=== PATIENT | male | born 1990 | race Caucasian/White ===

== ENCOUNTER 2020-09-28 16:53 | Emergency (ER) | payer OTHER ==
[~2020-09-28] VITALS: Ht 175.3 cm; Wt 86.4 kg
[2020-09-28] MEDS ORDERED: acetaminophen 325mg tablet PO ONE (17:05)
--- NOTE | 2020-09-28 17:16 | NUR ---
TO CT SCAN
[2020-09-28] MEDS ORDERED: ONDA4TAB6 PO (18:05)
[2020-09-28] MEDS ORDERED: HYDR-3964 PO (18:05)
[2020-09-28 18:39] VITALS: BP 146/91
== END 2020-09-28 18:41 ==
LOC: ER 16:53
DX: S02.40FA Zygomatic fracture, left side, initial encounter for closed fracture (principal); S00.83XA Contusion of other part of head, initial encounter; S06.0X0A Concussion without loss of consciousness, initial encounter; S02.40DA Maxillary fracture, left side, initial encounter for closed fracture; R51.9 Headache, unspecified; N18.9 Chronic kidney disease, unspecified; Z79.899 Other long term (current) drug therapy; Y08.89XA Assault by other specified means, initial encounter; Y93.89 Activity, other specified; Y92.89 Other specified places as the place of occurrence of the external cause; Y99.8 Other external cause status
CPT/HCPCS: 70450; 70486; 99285

== ENCOUNTER 2020-12-08 23:43 | Inpatient (IN) | payer OTHER ==
[~2020-12-08] VITALS: Ht 185.4 cm; Wt 75.0 kg
[~2020-12-08 23:43] MED LIST: ONDA4TAB6 PO
[2020-12-08] MEDS ORDERED: normal saline 1000ML IV soln IVB ONE (23:55)
[2020-12-09 00:42] LABS: ALANINE AMINOTRANSFERASE 145 U/L (12-78); ALBUMIN 3.5 G/DL (3.4-5.0); ALKALINE PHOSPHATASE 95 IU/L (46-116); ANION GAP 7 (8-16); ASPARTATE AMINO TRANSFERASE 130 U/L (10-37); BILIRUBIN,TOTAL 1.5 MG/DL (0.1-1.0); BLOOD UREA NITROGEN 16 MG/DL (7-18); BUN/CREATININE RATIO 14.3 (5.4-32.0); CALCIUM 8.1 MG/DL (8.5-10.1); CHLORIDE 106 MMOL/L (99-107); CREATININE 1.12 MG/DL (0.60-1.10); GLUCOSE 250 MG/DL (70-104); POTASSIUM 4.7 MMOL/L (3.5-5.1); SODIUM 141 MMOL/L (135-145); TOTAL CARBON DIOXIDE 27.8 MMOL/L (24-32); TOTAL PROTEIN 6.9 G/DL (6.4-8.2); eGFR 76 ML/MIN
[2020-12-09 00:45] LABS: ETHANOL < 0.010 GM/DL (0.0-0.010); TROPONIN I 0.33 NG/ML (0.0-0.05)
[2020-12-09] MEDS ORDERED: normal saline 1000ML IV soln IVB ONE (01:00)
[2020-12-09] MEDS ORDERED: aspirin 81mg tab.chew PO ONE (01:00)
[2020-12-09 01:01] LABS: BASOPHILS % (AUTO) 0.1 % (0-1); EOSINOPHILS % (AUTO) 0.3 % (0-6); HEMOGLOBIN 14.1 g/dl (14.0-17.9); LYMPHOCYTES # (AUTO) 1.1 X10'3 (1.1-4.8); LYMPHOCYTES % (AUTO) 7.7 % (21-51); MEAN CORPUSCULAR HEMOGLOBIN 31.1 PG (27.0-31.0); MEAN CORPUSCULAR HGB CONC 34.4 g/dL (33.0-36.5); MEAN CORPUSCULAR VOLUME 90.4 FL (78-98); MONOCYTES # (AUTO) 0.7 X10'3 (0-0.9); MONOCYTES % (AUTO) 5.2 % (2-12); NEUTROPHILS # (AUTO) 11.9 X10'3 (1.8-7.7); NEUTROPHILS % (AUTO) 86.7 % (42-75); PLATELET COUNT 317 X10'3 (140-440); RED BLOOD COUNT 4.53 X10'6 (4.70-6.10); RED CELL DISTRIBUTION WIDTH 13.1 % (11.5-14.5); WHITE BLOOD COUNT 13.7 X10'3 (4.5-11.0)
[2020-12-09] MEDS ORDERED: diphenhydrAMINE 50 mg/ml inj IV PRN (01:35)
[2020-12-09] MEDS ORDERED: acetaminophen 650mg rectal suppository RC PRN (01:35)
[2020-12-09] MEDS ORDERED: mag hydrox/Alum hydrox/simeth 30ml oral suspension PO PRN (01:35)
[2020-12-09] MEDS ORDERED: magnesium hydroxide 30ml (MOM) UD suspension PO PRN (01:35)
[2020-12-09] MEDS ORDERED: acetaminophen 325mg tablet PO PRN ×2 (01:35)
[2020-12-09] MEDS ORDERED: ondansetron/PF 4mg/2ml inj IV PRN (01:35)
[2020-12-09] MEDS ORDERED: morphine 2 MG/ML inj. syringe IV PRN (01:35)
[2020-12-09] MEDS ORDERED: bisacodyl 10mg suppository rectal RC PRN (01:35)
[2020-12-09] MEDS ORDERED: diphenhydrAMINE 25mg capsule PO PRN (01:35)
[2020-12-09 01:55] LABS: HEMOGLOBIN A1C 5.2 % (4.5-6.2)
[2020-12-09 02:03] LABS: CREATINE KINASE 157 U/L (39-308); LIPASE < 50 U/L (73-393); PHOSPHORUS 4.3 MG/DL (2.3-4.5)
[2020-12-09] MEDS: normal saline 1000ml 1,000 ML IV SCH ×3 (02:05→19:57)
[2020-12-09] MEDS ORDERED: heparin, porcine 5000 units/ml vial SQ ONE (02:10)
[2020-12-09] MEDS: morphine 2 MG/ML inj. syringe IV PRN (02:16)
[2020-12-09 02:38] LABS: PARTIAL THROMBOPLASTIN TIME 27 SECONDS (22-32)
[2020-12-09] MEDS ORDERED: heparin 10,000 units/1 ML INJ IV PRN (02:45)
[2020-12-09] MEDS ORDERED: heparin 25,000 UNIT/250ml bag 250 ML IV SCH (02:45)
[2020-12-09] MEDS ORDERED: heparin 10,000 units/1 ML INJ IV ONE (02:45)
[2020-12-09 03:14] LABS: BASOPHILS % (AUTO) 0.1 % (0-1); EOSINOPHILS % (AUTO) 0 % (0-6); HEMATOCRIT 33.4 % (42.0-52.0); HEMOGLOBIN 11.1 g/dl (14.0-17.9); LYMPHOCYTES # (AUTO) 0.5 X10'3 (1.1-4.8); LYMPHOCYTES % (AUTO) 4.2 % (21-51); MEAN CORPUSCULAR HEMOGLOBIN 30.9 PG (27.0-31.0); MEAN CORPUSCULAR HGB CONC 33.2 g/dL (33.0-36.5); MEAN PLATELET VOLUME 5.6 FL (7.4-10.4); MONOCYTES # (AUTO) 0.9 X10'3 (0-0.9); MONOCYTES % (AUTO) 7.5 % (2-12); NEUTROPHILS % (AUTO) 88.2 % (42-75); PLATELET COUNT 226 X10'3 (140-440); RED BLOOD COUNT 3.59 X10'6 (4.70-6.10); RED CELL DISTRIBUTION WIDTH 13.3 % (11.5-14.5); WHITE BLOOD COUNT 11.4 X10'3 (4.5-11.0)
[2020-12-09] MEDS ORDERED: iohexol 350MG/ML 100ml bottle IV ONE (04:42)
[2020-12-09] MEDS: HYDROcodone/acetaminophen 5mg/325mg tablet PO PRN ×3 (05:25→19:58)
[2020-12-09 05:27] VITALS: BP 108/56
--- NOTE | 2020-12-09 06:29 | NUR ---
Patient in room PCU 3027. I have received report from AMARA Washington and had the opportunity to ask questions and assume patient care.
[2020-12-09] MEDS ORDERED: atorvastatin 20mg tablet PO SCH (08:00)
[2020-12-09] MEDS: nicotine 21mg patch - 24 hr TD SCH (08:00)
[2020-12-09] MEDS: docusate sod 100mg capsule PO SCH ×2 (08:00→19:58)
[2020-12-09] MEDS ORDERED: metoprolol succinate 25mg (24-HOUR) SR. Tablet PO SCH (08:00)
[2020-12-09] MEDS ORDERED: nitroGLYCERIN 0.1mg/hour patch TD SCH (08:00)
[2020-12-09] MEDS ORDERED: lisinopril 2.5mg tablet PO SCH (08:00)
[2020-12-09] MEDS: aspirin 81mg tablet.DR PO SCH (08:17)
[2020-12-09] MEDS: CefTRIAXone/D5W-Rocephin 1gm 50 ML IV SCH (08:17)
[2020-12-09] MEDS: pantoprazole 40mg Tablet.DR PO SCH (08:18)
[2020-12-09] MEDS ORDERED: NO HOME MEDS (09:35)
[2020-12-09] MEDS: azithromycin 250mg tablet PO SCH (10:39)
[2020-12-09 11:00] VITALS: BP 94/53
[2020-12-09 11:10] LABS: HIV ANTIBODY 1&2 RAPID NON-REACTIVE (Neg)
[2020-12-09] MEDS ORDERED: heparin, porcine 5000 units/ml vial SQ SCH (14:00)
[2020-12-09 15:00] VITALS: BP 103/57
[2020-12-09 17:47] LABS: CLARITY,URINE CLEAR (Clear); COLOR,URINE YELLOW (Yellow); GLUCOSE, URINE 250 mg/dl (Neg); KETONES,URINE NEGATIVE (Neg); LEUKOCYTE ESTERASE ,URINE NEGATIVE (Neg); NITRITES, URINE NEGATIVE (Neg); OCCULT BLOOD,URINE NEGATIVE (Neg); PH,URINE 5.5 (4.8-8.0); PROTEIN,URINE TRACE mg/dl (Neg)
[2020-12-09 17:51] LABS: UA COLLECTION TYPE NON-SPECIFIED
[2020-12-09 17:52] LABS: BACTERIA,URINE NONE SEEN /HPF (Neg); MUCUS STRANDS FEW /LPF (Neg); RBC,URINE NONE SEEN /HPF (0-2); SQUAMOUS EPITHELIAL CELL,UR NONE SEEN /LPF (FEW); WBC,URINE 0-4 /HPF (0-4)
[2020-12-09 18:00] VITALS: BP 110/53
[2020-12-09 18:00] LABS: URINE AMPHETAMINE SCREEN POSITIVE (Neg); URINE BARBITUATE SCREEN NEGATIVE (Neg); URINE BENZODIAZEPINES SCREEN NEGATIVE (Neg); URINE CANNABINOID SCREEN POSITIVE (Neg); URINE COCAINE SCREEN NEGATIVE (Neg); URINE METHADONE SCREEN NEGATIVE (Neg); URINE OPIATE SCREEN POSITIVE (Neg); URINE PHENCYCLIDINE SCREEN NEGATIVE (Neg)
--- NOTE | 2020-12-09 18:20 | NUR ---
Problems reprioritized. Patient report given, questions answered & plan of care reviewed with AMARA Vogt.
--- NOTE | 2020-12-09 19:47 | NUR ---
Patient in room PCU 3027. I have received report from Lizet MALONEY and had the opportunity to ask questions and assume patient care.
[2020-12-09] MEDS: lactobacillus rhamnosus 10,000 MMU CELLS/CAPSULE PO SCH (19:58)
[2020-12-09] MEDS: heparin, porcine 5000 units/ml vial SQ SCH (19:58)
[2020-12-09] MEDS ORDERED: temazepam 15mg capsule PO PRN (21:00)
[2020-12-09 22:00] VITALS: BP 96/48
[2020-12-10] MEDS: morphine 2 MG/ML inj. syringe IV PRN (01:54)
[2020-12-10] MEDS: normal saline 1000ml 1,000 ML IV SCH ×2 (01:55→10:13)
[2020-12-10 02:00] VITALS: BP 101/65
--- NOTE | 2020-12-10 06:20 | NUR ---
Patient in room PCU 3027. I have received report from Sin MALONEY and had the opportunity to ask questions and assume patient care.
--- NOTE | 2020-12-10 06:41 | NUR ---
Problems reprioritized. Patient report given, questions answered & plan of care reviewed with Clemencia.
[2020-12-10 06:42] LABS: BASOPHILS % (AUTO) 0.3 % (0-1); EOSINOPHILS # (AUTO) 0.1 X10'3 (0-0.9); EOSINOPHILS % (AUTO) 0.7 % (0-6); HEMATOCRIT 37.4 % (42.0-52.0); HEMOGLOBIN 12.9 g/dl (14.0-17.9); LYMPHOCYTES # (AUTO) 1.1 X10'3 (1.1-4.8); LYMPHOCYTES % (AUTO) 8.9 % (21-51); MEAN CORPUSCULAR HGB CONC 34.4 g/dL (33.0-36.5); MEAN CORPUSCULAR VOLUME 90.1 FL (78-98); MEAN PLATELET VOLUME 6.4 FL (7.4-10.4); MONOCYTES # (AUTO) 0.9 X10'3 (0-0.9); MONOCYTES % (AUTO) 7.4 % (2-12); NEUTROPHILS # (AUTO) 9.9 X10'3 (1.8-7.7); NEUTROPHILS % (AUTO) 82.7 % (42-75); PLATELET COUNT 268 X10'3 (140-440); RED BLOOD COUNT 4.15 X10'6 (4.70-6.10); RED CELL DISTRIBUTION WIDTH 13.1 % (11.5-14.5); WHITE BLOOD COUNT 11.9 X10'3 (4.5-11.0)
[2020-12-10 06:49] LABS: ALANINE AMINOTRANSFERASE 103 U/L (12-78); ALBUMIN 2.7 G/DL (3.4-5.0); ALBUMIN/GLOBULIN RATIO 0.9 (1.1-1.5); ALKALINE PHOSPHATASE 78 IU/L (46-116); ANION GAP 9 (8-16); ASPARTATE AMINO TRANSFERASE 43 U/L (10-37); BILIRUBIN,TOTAL 2.4 MG/DL (0.1-1.0); BLOOD UREA NITROGEN 8 MG/DL (7-18); BUN/CREATININE RATIO 10.5 (5.4-32.0); CALCIUM 8.1 MG/DL (8.5-10.1); CHLORIDE 108 MMOL/L (99-107); CHOL/HDL RATIO 4.2 (0.00-4.99); CHOLESTEROL 130 MG/DL (0-200); CREATININE 0.76 MG/DL (0.60-1.10); GLUCOSE 107 MG/DL (70-104); HDL CHOLESTEROL 31 MG/DL (35-60); LDL CHOLESTEROL 81 MG/DL (50-100); MAGNESIUM 1.7 MG/DL (1.5-2.4); PHOSPHORUS 1.8 MG/DL (2.3-4.5); POTASSIUM 3.7 MMOL/L (3.5-5.1); SODIUM 140 MMOL/L (135-145); TOTAL CARBON DIOXIDE 23.3 MMOL/L (24-32); TOTAL PROTEIN 5.8 G/DL (6.4-8.2); TRIGLYCERIDES 92 MG/DL (20-135); eGFR > 90 ML/MIN
[2020-12-10 07:00] VITALS: BP 109/73
[2020-12-10] MEDS: docusate sod 100mg capsule PO SCH ×2 (08:00→19:39)
[2020-12-10] MEDS: nicotine 21mg patch - 24 hr TD SCH (08:00)
[2020-12-10] MEDS: CefTRIAXone/D5W-Rocephin 1gm 50 ML IV SCH (08:22)
[2020-12-10] MEDS: HYDROcodone/acetaminophen 5mg/325mg tablet PO PRN ×3 (08:25→19:37)
--- NOTE | 2020-12-10 08:25 | NUR ---
Patient refused stool softener and Marc patch. He stated he "doesnt need that". Pt was teary eyed as well. We will continue to monitor.
[2020-12-10] MEDS: azithromycin 250mg tablet PO SCH (08:26)
[2020-12-10] MEDS: lactobacillus rhamnosus 10,000 MMU CELLS/CAPSULE PO SCH ×2 (08:26→19:37)
[2020-12-10] MEDS: pantoprazole 40mg Tablet.DR PO SCH (08:26)
[2020-12-10] MEDS: aspirin 81mg tablet.DR PO SCH (08:26)
[2020-12-10] MEDS: heparin, porcine 5000 units/ml vial SQ SCH ×2 (08:26→19:39)
--- NOTE | 2020-12-10 12:08 | NUR ---
Dr. Justin and nurse at bedside with nurse. New orders, DC morphine, Advance diet to heart healthy Caution no knives, DC NS@120. MD plan to Discharge tomorrow. Will continue to monitor
[2020-12-10] MEDS: vancomycin/NS 1 GM ADD-VANTAGE 250 ML X 1 DOSE IV SCH ×2 (13:07→19:39)
[2020-12-10] MEDS: piperacillin/tazo 3.375gm/50ml 50 ML IV SCH ×3 (14:21→23:52)
[2020-12-10 14:29] LABS: HBSAG SCREEN Negative (Negative); HEP A AB, IGM Negative (Negative); HEPATITIS C ANTIBODY <0.1 s/co ratio (0.0-0.9)
[2020-12-10 18:00] VITALS: BP 123/72
--- NOTE | 2020-12-10 18:45 | NUR ---
Patient in room PCU 3027. I have received report from Clemencia MALONEY and had the opportunity to ask questions and assume patient care.
--- NOTE | 2020-12-10 18:52 | NUR ---
Problems reprioritized. Patient report given, questions answered & plan of care reviewed with Sin RN.
[2020-12-10 22:00] VITALS: BP 112/67
[2020-12-11] MEDS: vancomycin/NS 1 GM ADD-VANTAGE 250 ML X 1 DOSE IV SCH (01:52)
[2020-12-11 02:00] VITALS: BP 132/77
[2020-12-11] MEDS: HYDROcodone/acetaminophen 5mg/325mg tablet PO PRN ×4 (05:26→20:44)
[2020-12-11 05:55] LABS: BASOPHILS % (AUTO) 0.3 % (0-1); EOSINOPHILS # (AUTO) 0.2 X10'3 (0-0.9); EOSINOPHILS % (AUTO) 1.8 % (0-6); HEMATOCRIT 36.9 % (42.0-52.0); HEMOGLOBIN 12.9 g/dl (14.0-17.9); LYMPHOCYTES # (AUTO) 1.5 X10'3 (1.1-4.8); LYMPHOCYTES % (AUTO) 15.5 % (21-51); MEAN CORPUSCULAR HEMOGLOBIN 31.2 PG (27.0-31.0); MEAN CORPUSCULAR VOLUME 88.9 FL (78-98); MEAN PLATELET VOLUME 6.8 FL (7.4-10.4); MONOCYTES # (AUTO) 0.8 X10'3 (0-0.9); NEUTROPHILS % (AUTO) 74.4 % (42-75); PLATELET COUNT 291 X10'3 (140-440); RED BLOOD COUNT 4.15 X10'6 (4.70-6.10); RED CELL DISTRIBUTION WIDTH 12.8 % (11.5-14.5); WHITE BLOOD COUNT 9.4 X10'3 (4.5-11.0)
[2020-12-11 06:00] VITALS: BP 107/68
--- NOTE | 2020-12-11 06:00 | NUR ---
Patient in room PCU 3027. I have received report from Sin MALONEY and had the opportunity to ask questions and assume patient care.
[2020-12-11 06:04] LABS: ALANINE AMINOTRANSFERASE 76 U/L (12-78); ALBUMIN 2.7 G/DL (3.4-5.0); ALBUMIN/GLOBULIN RATIO 0.8 (1.1-1.5); ALKALINE PHOSPHATASE 86 IU/L (46-116); ANION GAP 10 (8-16); ASPARTATE AMINO TRANSFERASE 21 U/L (10-37); BILIRUBIN,TOTAL 1.4 MG/DL (0.1-1.0); BLOOD UREA NITROGEN 7 MG/DL (7-18); CALCIUM 8.4 MG/DL (8.5-10.1); CHLORIDE 109 MMOL/L (99-107); CREATININE 0.87 MG/DL (0.60-1.10); GLUCOSE 110 MG/DL (70-104); PHOSPHORUS 3.2 MG/DL (2.3-4.5); POTASSIUM 3.4 MMOL/L (3.5-5.1); SODIUM 143 MMOL/L (135-145); TOTAL CARBON DIOXIDE 24.5 MMOL/L (24-32); TOTAL PROTEIN 6.2 G/DL (6.4-8.2); eGFR > 90 ML/MIN
--- NOTE | 2020-12-11 06:21 | NUR ---
Problems reprioritized. Patient report given, questions answered & plan of care reviewed with Tena MALONEY.
[2020-12-11] MEDS: nicotine 21mg patch - 24 hr TD SCH (08:00)
[2020-12-11] MEDS: aspirin 81mg tablet.DR PO SCH (08:20)
[2020-12-11] MEDS: azithromycin 250mg tablet PO SCH (08:20)
[2020-12-11] MEDS: pantoprazole 40mg Tablet.DR PO SCH (08:20)
[2020-12-11] MEDS: heparin, porcine 5000 units/ml vial SQ SCH ×2 (08:21→20:23)
[2020-12-11] MEDS: docusate sod 100mg capsule PO SCH ×2 (08:22→20:00)
[2020-12-11] MEDS: lactobacillus rhamnosus 10,000 MMU CELLS/CAPSULE PO SCH ×2 (08:22→20:22)
[2020-12-11] MEDS: piperacillin/tazo 3.375gm/50ml 50 ML IV SCH ×2 (08:24→16:04)
[2020-12-11] MEDS ORDERED: VANCOMYCIN LEVEL IV ONE (10:30)
[2020-12-11 11:00] VITALS: BP 126/79
[2020-12-11] MEDS: VANCOmycin 1250MG/NS 250ml Bag 250 ML IV SCH ×2 (12:55→20:22)
--- NOTE | 2020-12-11 13:36 | NUR ---
PAGER ID: [phone] MESSAGE: Patient Jake Singh room 3987U is requesting medication for heroin withdrawal. Please advise. Tena ext [phone]
[2020-12-11] MEDS ORDERED: LORazepam 1 MG tablet PO PRN (13:40)
[2020-12-11 15:00] VITALS: BP 123/78
--- NOTE | 2020-12-11 15:39 | NUR ---
PAGER ID: [phone] MESSAGE: Poison control recommends buprenorphine 8mg for withdrawal symptoms for patient Jake Singh Room 7079T
[2020-12-11 18:00] VITALS: BP 125/66
--- NOTE | 2020-12-11 18:11 | NUR ---
Patient in room PCU 3027. I have received report from Tena MALONEY and had the opportunity to ask questions and assume patient care.
--- NOTE | 2020-12-11 18:13 | NUR ---
Problems reprioritized. Patient report given, questions answered & plan of care reviewed with Sin RN.
[2020-12-11] MEDS ORDERED: magnesium Cl slow-release 64mg tablet PO PRN (19:00)
[2020-12-11] MEDS ORDERED: magnesium 4gm in 100ml NS 100 ML IV PRN (19:00)
[2020-12-11] MEDS ORDERED: potassium Cl 20 mEq SR tablet PO PRN ×2 (19:00)
[2020-12-11] MEDS ORDERED: potassium Cl 40MEQ/1/2NS 520ml 520 ML IV PRN (19:00)
[2020-12-11] MEDS: K and/or MAG REPLACEMENT MC SCH (20:40)
[2020-12-11 22:00] VITALS: BP 116/56
[2020-12-12] MEDS: piperacillin/tazo 3.375gm/50ml 50 ML IV SCH ×2 (00:19→07:47)
--- NOTE | 2020-12-12 03:25 | NUR ---
Patient refused 0200 vitals.
[2020-12-12] MEDS: VANCOmycin 1250MG/NS 250ml Bag 250 ML IV SCH (04:03)
--- NOTE | 2020-12-12 06:27 | NUR ---
Patient in room U 3027. I have received report from Sin MALONEY and had the opportunity to ask questions and assume patient care.Patient is sleeping in bed and is in no acute distress.
[2020-12-12 06:33] LABS: BASOPHILS % (AUTO) 0.4 % (0-1); EOSINOPHILS # (AUTO) 0.3 X10'3 (0-0.9); EOSINOPHILS % (AUTO) 2.7 % (0-6); HEMATOCRIT 36.9 % (42.0-52.0); HEMOGLOBIN 13.1 g/dl (14.0-17.9); LYMPHOCYTES # (AUTO) 1.8 X10'3 (1.1-4.8); LYMPHOCYTES % (AUTO) 19.5 % (21-51); MEAN CORPUSCULAR HEMOGLOBIN 31.2 PG (27.0-31.0); MEAN CORPUSCULAR HGB CONC 35.5 g/dL (33.0-36.5); MEAN PLATELET VOLUME 6.3 FL (7.4-10.4); MONOCYTES # (AUTO) 0.8 X10'3 (0-0.9); NEUTROPHILS # (AUTO) 6.5 X10'3 (1.8-7.7); NEUTROPHILS % (AUTO) 69.4 % (42-75); PLATELET COUNT 340 X10'3 (140-440); RED CELL DISTRIBUTION WIDTH 12.6 % (11.5-14.5); WHITE BLOOD COUNT 9.4 X10'3 (4.5-11.0)
[2020-12-12 06:52] LABS: ALANINE AMINOTRANSFERASE 55 U/L (12-78); ALBUMIN 2.7 G/DL (3.4-5.0); ALBUMIN/GLOBULIN RATIO 0.7 (1.1-1.5); ALKALINE PHOSPHATASE 182 IU/L (46-116); ANION GAP 8 (8-16); ASPARTATE AMINO TRANSFERASE 18 U/L (10-37); BILIRUBIN,TOTAL 0.9 MG/DL (0.1-1.0); BLOOD UREA NITROGEN 6 MG/DL (7-18); BUN/CREATININE RATIO 6.4 (5.4-32.0); CALCIUM 8.5 MG/DL (8.5-10.1); CHLORIDE 110 MMOL/L (99-107); CREATININE 0.94 MG/DL (0.60-1.10); GLUCOSE 98 MG/DL (70-104); MAGNESIUM 1.9 MG/DL (1.5-2.4); PHOSPHORUS 4.5 MG/DL (2.3-4.5); POTASSIUM 3.6 MMOL/L (3.5-5.1); SODIUM 144 MMOL/L (135-145); TOTAL CARBON DIOXIDE 25.6 MMOL/L (24-32); TOTAL PROTEIN 6.4 G/DL (6.4-8.2); eGFR > 90 ML/MIN
[2020-12-12 07:00] VITALS: BP 120/77
[2020-12-12] MEDS: docusate sod 100mg capsule PO SCH ×2 (07:46→07:52)
[2020-12-12] MEDS: lactobacillus rhamnosus 10,000 MMU CELLS/CAPSULE PO SCH (07:46)
[2020-12-12] MEDS: pantoprazole 40mg Tablet.DR PO SCH (07:46)
[2020-12-12] MEDS: aspirin 81mg tablet.DR PO SCH (07:47)
[2020-12-12] MEDS: azithromycin 250mg tablet PO SCH (07:47)
[2020-12-12] MEDS: heparin, porcine 5000 units/ml vial SQ SCH ×2 (07:47→07:52)
[2020-12-12] MEDS: nicotine 21mg patch - 24 hr TD SCH (07:48)
[2020-12-12] MEDS: K and/or MAG REPLACEMENT MC SCH (07:48)
[2020-12-12] MEDS: HYDROcodone/acetaminophen 5mg/325mg tablet PO PRN (07:57)
[2020-12-12] MEDS ORDERED: AZI25OT PO (08:32)
[2020-12-12] MEDS ORDERED: PANT40TA54 PO (08:32)
[2020-12-12] MEDS ORDERED: ALBU8.5H8 INH (08:32)
[2020-12-12] MEDS ORDERED: CEFD300C3 PO (08:32)
[2020-12-12] MEDS ORDERED: LACT1CAP26 PO (08:32)
[2020-12-12 11:00] VITALS: BP 118/66
--- NOTE | 2020-12-12 11:25 | NUR ---
RX x 5 called into pharmacist Derik [facility] on [address] in [place]
[2020-12-12] MEDS ORDERED: VANCOMYCIN LEVEL IV ONE (11:30)
--- NOTE | 2020-12-12 13:00 | NUR ---
Patient is dc to home. PIV removed with cannula intact. RX were called to pharmacist Derik at [facility] on [address] in [place]. Patient was advised to quit smoking, drinking and doing heroin and meth. He was educated on the reasons to stop and the ill health effects that can result. DC instructions and warning s/s were reviewed with the patient and he verbalized understanding and was given the opportunity to ask questions.
== END 2020-12-12 12:06 | disposition home or self-care (01) | DRG 871 ==
LOC: ER 23:44 → ED HOLD 12-09 01:32 → PCU 3S 12-09 03:40
PROVIDERS: ADMIT Family Medicine; ATTEND Family Medicine
PROC: B32T1ZZ Computerized Tomography (CT Scan) of Left Pulmonary Artery using Low Osmolar Contrast (ICD-10-PCS; principal; 2020-12-09)
PROC: B3201ZZ Computerized Tomography (CT Scan) of Thoracic Aorta using Low Osmolar Contrast (ICD-10-PCS; 2020-12-09)
PROC: B32S1ZZ Computerized Tomography (CT Scan) of Right Pulmonary Artery using Low Osmolar Contrast (ICD-10-PCS; 2020-12-09)
DX: A41.9 Sepsis, unspecified organism (principal); I46.9 Cardiac arrest, cause unspecified; J18.9 Pneumonia, unspecified organism; I21.A1 Myocardial infarction type 2; T40.1X1A Poisoning by heroin, accidental (unintentional), initial encounter; T43.621A Poisoning by amphetamines, accidental (unintentional), initial encounter; E86.0 Dehydration; T40.601A Poisoning by unspecified narcotics, accidental (unintentional), initial encounter; F11.229 Opioid dependence with intoxication, unspecified; Z20.822 Contact with and (suspected) exposure to COVID-19; F15.229 Other stimulant dependence with intoxication, unspecified; F17.200 Nicotine dependence, unspecified, uncomplicated; I07.1 Rheumatic tricuspid insufficiency; R74.01 Elevation of levels of liver transaminase levels; I77.810 Thoracic aortic ectasia; N18.9 Chronic kidney disease, unspecified; Z59.0 Homelessness; Y92.89 Other specified places as the place of occurrence of the external cause; Z71.6 Tobacco abuse counseling; Z71.51 Drug abuse counseling and surveillance of drug abuser
CPT/HCPCS: 36415; 70450; 71045; 71275; 80053; 80061; 80202; 80305; 80320; 81001; 82550; 83036; 83605; 83690; 83735; 83880; 84100; 84145; 84443; 84484; 85025; 85379; 85610; 85730; 86703; 86705; 86706; 86709; 86803; 87040; 87081; 87340; 87635; 93005; 93306; 96361; 99291; G0378; J0696; J1644; J2270; J2543; J3370; J7030; Q9967